=== PATIENT | male | born 1990 | race Two or more races ===

== ENCOUNTER 2017-03-03 12:29 | Outpatient (CLI) | payer OTHER ==
[~2017-03-03 12:29] MED LIST: AMOX1TAB12 PO; MUPIROCIN15 GM TOP; PERIDEX473 ML MM
== END 2017-03-03 12:34 | disposition home or self-care (01) ==
LOC: RAD 12:29
DX: R56.9 Unspecified convulsions (principal)

== ENCOUNTER 2017-03-04 10:22 | Outpatient (CLI) | payer OTHER | END 2017-03-04 10:26 | disposition home or self-care (01) | LOC: LAB 10:22 | DX: R56.9 Unspecified convulsions (principal) ==

== ENCOUNTER → 2017-03-08 12:23 | Outpatient (CLI) | payer OTHER ==
[~2017-03-08] VITALS: Ht 152.4 cm; Wt 104.3 kg
== END | disposition home or self-care (01) ==
LOC: PPHC 12:23
DX: G40.89 Other seizures (principal)

== ENCOUNTER 2017-08-29 09:08 | Emergency (ER) | payer OTHER ==
[~2017-08-29] VITALS: Ht 180.3 cm; Wt 113.4 kg
[2017-08-29] MEDS ORDERED: KEPPRA500 MG PO (09:18)
== END 2017-08-29 12:35 | disposition home or self-care (01) ==
LOC: ER 09:08
DX: B34.9 Viral infection, unspecified (principal)

== ENCOUNTER 2017-09-06 08:13 | Emergency (ER) | payer OTHER ==
[~2017-09-06] VITALS: Ht 165.1 cm; Wt 93.0 kg
[~2017-09-06 08:13] MED LIST changes: +KEPPRA500 MG PO
[2017-09-06] MEDS ORDERED: AMOX1TAB5 PO (10:50)
[2017-09-06] MEDS ORDERED: TUSSI PRES-B L120 M1 PO (10:50)
== END 2017-09-06 11:04 | disposition home or self-care (01) ==
LOC: ER 08:13
DX: J06.9 Acute upper respiratory infection, unspecified (principal)

== ENCOUNTER 2018-12-16 07:45 | Emergency (ER) | payer OTHER ==
[~2018-12-16] VITALS: Ht 177.8 cm; Wt 104.3 kg
[~2018-12-16 07:45] MED LIST changes: +AMOX1TAB5 PO; +TUSSI PRES-B L120 M1 PO
== END 2018-12-16 15:33 | disposition home or self-care (01) ==
LOC: ER 07:45
DX: T62.8X1A Toxic effect of other specified noxious substances eaten as food, accidental (unintentional), initial encounter (principal)

== ENCOUNTER 2019-05-13 01:36 | Emergency (ER) | payer OTHER ==
[~2019-05-13] VITALS: Ht 177.8 cm; Wt 122.5 kg
== END 2019-05-13 06:28 | disposition home or self-care (01) ==
LOC: ER 01:36
DX: K52.89 Other specified noninfective gastroenteritis and colitis (principal)

== ENCOUNTER → 2019-11-29 | Outpatient (CLI) | payer OTHER | END | disposition home or self-care (01) | LOC: PPH VACUNA 09:00 | DX: Z23 Encounter for immunization (principal) ==

== ENCOUNTER 2020-04-19 00:59 | Emergency (ER) | payer OTHER ==
[~2020-04-19] VITALS: Ht 175.3 cm; Wt 113.4 kg
[2020-04-19] MEDS ORDERED: ORPHENADRINE C100 MG PO (03:02)
[2020-04-19] MEDS ORDERED: KETO10TA2 PO (03:02)
== END 2020-04-19 03:24 | disposition home or self-care (01) ==
LOC: ER 00:59
DX: S40.011A Contusion of right shoulder, initial encounter (principal); W18.39XA Other fall on same level, initial encounter; Y93.89 Activity, other specified; Y92.098 Other place in other non-institutional residence as the place of occurrence of the external cause; Y99.8 Other external cause status

== ENCOUNTER 2020-04-29 07:50 | Outpatient (CLI) | payer OTHER ==
[~2020-04-29 07:50] MED LIST changes: +KETO10TA2 PO; +ORPHENADRINE C100 MG PO
== END 2020-04-29 08:04 | disposition home or self-care (01) ==
LOC: MRI 07:50
PROVIDERS: ATTEND Orthopaedic Surgery
DX: S42.291A Other displaced fracture of upper end of right humerus, initial encounter for closed fracture (principal)
CPT/HCPCS: 73221

== ENCOUNTER 2020-06-26 20:46 | Emergency (ER) | payer OTHER ==
[~2020-06-26] VITALS: Ht 177.8 cm; Wt 117.9 kg
== END 2020-06-26 22:35 | disposition home or self-care (01) ==
LOC: ER 20:46
DX: S43.014A Anterior dislocation of right humerus, initial encounter (principal); W18.39XA Other fall on same level, initial encounter; Y93.89 Activity, other specified; Y92.098 Other place in other non-institutional residence as the place of occurrence of the external cause; Y99.8 Other external cause status

== ENCOUNTER 2020-12-03 08:00 | Outpatient (CLI) | payer OTHER | END 2020-12-03 08:30 | disposition home or self-care (01) | LOC: PPH VACUNA 08:00 | PROVIDERS: ATTEND Emergency Medicine Pediatric Emergency Medicine | DX: Z23 Encounter for immunization (principal) ==

== ENCOUNTER 2021-03-05 18:27 | Emergency (ER) | payer OTHER ==
[~2021-03-05] VITALS: Ht 180.3 cm; Wt 136.1 kg
== END 2021-03-05 22:01 | disposition home or self-care (01) ==
LOC: ER 18:27
DX: U07.1 COVID-19 (principal); B34.8 Other viral infections of unspecified site

== ENCOUNTER 2021-11-05 14:31 | Outpatient (CLI) | payer OTHER | END 2021-11-05 14:34 | disposition home or self-care (01) | LOC: LAB 14:31 | DX: J10.1 Influenza due to other identified influenza virus with other respiratory manifestations (principal); A49.3 Mycoplasma infection, unspecified site; U07.1 COVID-19 ==

== ENCOUNTER 2022-02-05 11:52 | Emergency (ER) | payer OTHER ==
[~2022-02-05] VITALS: Ht 180.3 cm; Wt 122.5 kg
[2022-02-05] MEDS ORDERED: DICLOFENAC POTA50 MG PO (15:33)
[2022-02-05] MEDS ORDERED: ULTRAM50 MG PO (15:33)
== END 2022-02-05 15:42 ==
LOC: ER 11:52
DX: S60.011A Contusion of right thumb without damage to nail, initial encounter (principal); W23.0XXA Caught, crushed, jammed, or pinched between moving objects, initial encounter; Y93.9 Activity, unspecified; Y92.9 Unspecified place or not applicable

== ENCOUNTER 2022-03-02 11:48 | Outpatient (CLI) | payer OTHER ==
[~2022-03-02 11:48] MED LIST changes: +DICLOFENAC POTA50 MG PO; +ULTRAM50 MG PO
== END 2022-03-02 11:51 | disposition home or self-care (01) ==
LOC: LAB 11:48
PROVIDERS: ATTEND Preventive Medicine Occupational Medicine
DX: U07.1 COVID-19 (principal)

== ENCOUNTER 2022-10-30 13:03 | Emergency (ER) | payer OTHER ==
[~2022-10-30] VITALS: Ht 177.8 cm; Wt 127.0 kg
== END 2022-10-30 17:04 | disposition home or self-care (01) ==
LOC: ER 13:03
DX: N50.811 Right testicular pain (principal)

== ENCOUNTER 2022-11-26 14:20 | Outpatient (CLI) | payer OTHER | END 2022-11-26 14:30 | disposition home or self-care (01) | LOC: PPH VACUNA 14:20 | PROVIDERS: ATTEND Emergency Medicine Pediatric Emergency Medicine | DX: Z23 Encounter for immunization (principal) | CPT/HCPCS: 90686; G0008 ==

== ENCOUNTER 2022-12-09 10:14 | Outpatient (CLI) | payer OTHER ==
[2022-12-09 08:41] LABS: HEMATOCRIT 42.4 % (39.0-48.0); HEMOGLOBIN 14.6 g/dL (13-16.00); MEAN CELL VOLUME 90.3 fL (80.0-100.00); MEAN CORPUSCULAR HEMOGLOBIN 31.1 pg (27.00-32.0); MEAN CORPUSCULAR HGB CONC 34.4 g/dl (32.0-36.0); PLATELET COUNT 182 K/uL (150-450); RED CELL DISTRIBUTION WIDTH 12.8 % (11.5-14.5)
[2022-12-09 08:45] LABS: PH,URINE 6.5 (5.0-8.0); URINE APPEARANCE Clear; URINE BILIRRUBIN Negative (NEGATIVE); URINE BLOOD Negative; URINE COLOR Yellow; URINE GLUCOSE Negative (NEGATIVE); URINE LEUKOCYTE Negative; URINE NITRATE Negative; URINE PROTEIN Negative (NEGATIVE)
[2022-12-09 08:48] LABS: ERYTHROCYTE SEDIMENTATION RATE 12 mm/hr
[2022-12-09 08:49] LABS: URINE BACTERIA 12.5 uL (0.0-1933); URINE RBC 2.1 uL (0.0-20.8)
[2022-12-09 09:13] LABS: URINE EPITHELIAL CELLS 1.2 uL (0.0-38.8)
[2022-12-09 09:15] LABS: INR 0.99; PARTIAL THROMBOPLASTIN TIME 29.3 SECONDS (22.0-34.0); PROTHROMBIN TIME 10.4 SECONDS (9.0-11.5)
[2022-12-09 09:30] LABS: ALBUMIN 3.7 gm/dL (3.4-5.0); BILIRUBIN TOTAL 0.28 mg/dL (0.3-1.2); CALCIUM 8.4 mg/dL (8.5-10.1); CHOL HDL RATIO 4.6 (0-5.0); CREATININE SERUM 0.83 mg/dL (0.70-1.30); GFR 107.37; GLOBULINA 3.3 G/DL (2.4-3.5); POTASSIUM 4.53 mEq/L (3.5-5.1); T4 FREE 0.9 NG/ML (0.76-1.46); TSH 2.55 uIU/mL (0.358-3.74)
[2022-12-09 11:35] LABS: VITAMIN D3 25 HYDROXY 19.95 ng/ml (30-120)
== END 2022-12-09 10:16 | disposition home or self-care (01) ==
LOC: LAB 10:14
DX: E11.69 Type 2 diabetes mellitus with other specified complication (principal); G40.909 Epilepsy, unspecified, not intractable, without status epilepticus; E66.01 Morbid (severe) obesity due to excess calories; I10 Essential (primary) hypertension; E03.5 Myxedema coma; D64.9 Anemia, unspecified; E78.2 Mixed hyperlipidemia; N39.0 Urinary tract infection, site not specified

== ENCOUNTER 2022-12-20 07:37 | Emergency (ER) | payer OTHER ==
[~2022-12-20] VITALS: Ht 180.3 cm; Wt 127.0 kg
[2022-12-20 08:46] LABS: HEMATOCRIT 46.2 % (39.0-48.0); HEMOGLOBIN 16.2 g/dL (13-16.00); MEAN CELL VOLUME 89.1 fL (80.0-100.00); MEAN CORPUSCULAR HEMOGLOBIN 31.3 pg (27.00-32.0); MEAN CORPUSCULAR HGB CONC 35.1 g/dl (32.0-36.0); PLATELET COUNT 189 K/uL (150-450); RED BLOOD COUNT 5.18 M/uL (4.00-6.00); RED CELL DISTRIBUTION WIDTH 12.8 % (11.5-14.5)
[2022-12-20 09:09] LABS: ALBUMIN 4.4 gm/dL (3.4-5.0); BILIRUBIN TOTAL 0.89 mg/dL (0.3-1.2); CALCIUM 9.3 mg/dL (8.5-10.1); CREATININE SERUM 1.02 mg/dL (0.70-1.30); GFR 84.64; GLOBULINA 4.1 G/DL (2.4-3.5); POTASSIUM 4.13 mEq/L (3.5-5.1); TOTAL PROTEIN 8.5 gm/dL (6.4-8.2)
[2022-12-20] MEDS ORDERED: PEPCID AC20 MG PO (10:50)
[2022-12-20] MEDS ORDERED: DICY20TA PO (10:50)
[2022-12-20] MEDS ORDERED: ZOFRAN8 MG PO (10:50)
== END 2022-12-20 11:49 | disposition home or self-care (01) ==
LOC: ER 07:38
PROVIDERS: General Practice
DX: K52.9 Noninfective gastroenteritis and colitis, unspecified (principal); Z20.822 Contact with and (suspected) exposure to COVID-19

== ENCOUNTER 2023-04-18 15:24 | Emergency (ER) | payer OTHER ==
[~2023-04-18] VITALS: Ht 172.7 cm; Wt 127.0 kg
[~2023-04-18 15:24] MED LIST changes: +DICY20TA PO; +PEPCID AC20 MG PO; +ZOFRAN8 MG PO
[2023-04-18] MEDS ORDERED: ENALAPRILAT DIHYDRATE 1.25 MG/ML VIAL IV ONE (16:15)
[2023-04-18 16:22] LABS: HEMATOCRIT 41.6 % (39.0-48.0); HEMOGLOBIN 14.6 g/dL (13-16.00); MEAN CELL VOLUME 90.7 fL (80.0-100.00); MEAN CORPUSCULAR HEMOGLOBIN 31.8 pg (27.00-32.0); MEAN CORPUSCULAR HGB CONC 35.1 g/dl (32.0-36.0); PLATELET COUNT 178 K/uL (150-450); RED BLOOD COUNT 4.59 M/uL (4.00-6.00); RED CELL DISTRIBUTION WIDTH 12.9 % (11.5-14.5)
[2023-04-18 16:52] LABS: CALCIUM 8.9 mg/dL (8.5-10.1); CREATININE SERUM 0.86 mg/dL (0.70-1.30); GFR 103.05; POTASSIUM 3.7 mEq/L (3.5-5.1)
[2023-04-18 16:55] LABS: INR 0.98; PARTIAL THROMBOPLASTIN TIME 29.3 SECONDS (22.0-34.0); PROTHROMBIN TIME 10.3 SECONDS (9.0-11.5)
[2023-04-18] MEDS ORDERED: METOCLOPRAMIDE HCL 5 MG/ML VIAL IM ONE (17:15)
[2023-04-18] MEDS ORDERED: DEXAMETHASONE SODIUM PHOSPHATE 4 MG/ML VIAL IM ONE (17:15)
== END 2023-04-18 17:40 | disposition home or self-care (01) ==
LOC: ER 15:24
PROVIDERS: General Practice
DX: R51.9 Headache, unspecified (principal); I10 Essential (primary) hypertension; Z20.822 Contact with and (suspected) exposure to COVID-19

== ENCOUNTER → 2023-06-20 | Emergency (ER) | payer OTHER ==
[~2023-06-20] VITALS: Ht 175.3 cm; Wt 120.2 kg
== END | disposition home or self-care (01) ==
LOC: ER 14:17
DX: H10.89 Other conjunctivitis (principal)

== ENCOUNTER 2023-12-08 11:05 | Outpatient (CLI) | payer OTHER | END 2023-12-08 12:00 | disposition home or self-care (01) | LOC: PPH VACUNA 11:05 | PROVIDERS: ATTEND Emergency Medicine Pediatric Emergency Medicine | DX: Z23 Encounter for immunization (principal) ==

== ENCOUNTER → 2024-06-13 | Emergency (ER) | payer OTHER ==
[~2024-06-13] VITALS: Ht 152.4 cm; Wt 95.3 kg
[~2024-06-13] MED LIST changes: +0.9 % SODIUM CHLORIDE 1,000 ML IV ONE; +FAMOTIDINE/PF 20 MG/2 ML VIAL IV PUSH STA; +FAMOTIDINE/PF 20 MG/2 ML VIAL ONE; +LIDOCAINE HCL 1% 10ML VIAL ONE; +PROMETHAZINE HCL 50 MG/ML AMPUL IM ONE; +PROMETHAZINE HCL 50 MG/ML AMPUL IM STA
[2024-06-13 08:52] LABS: HEMATOCRIT 45.1 % (39.0-48.0); HEMOGLOBIN 15.9 g/dL (13-16.00); MEAN CELL VOLUME 93.3 fL (80.0-100.00); MEAN CORPUSCULAR HEMOGLOBIN 32.8 pg (27.00-32.0); MEAN CORPUSCULAR HGB CONC 35.2 g/dl (32.0-36.0); PLATELET COUNT 209 K/uL (150-450); RED BLOOD COUNT 4.83 M/uL (4.00-6.00); RED CELL DISTRIBUTION WIDTH 13.3 % (11.5-14.5)
[2024-06-13 09:19] LABS: ALBUMIN 4.2 gm/dL (3.4-5.0); BILIRUBIN TOTAL 0.72 mg/dL (0.3-1.2); CALCIUM 9.3 mg/dL (8.5-10.1); CREATININE SERUM 0.73 mg/dL (0.70-1.30); GFR 122.99; GLOBULINA 3.7 G/DL (2.4-3.5); POTASSIUM 3.85 mEq/L (3.5-5.1); TOTAL PROTEIN 7.9 gm/dL (6.4-8.2)
[2024-06-13 11:18] LABS: PH,URINE 5.5 (5.0-8.0); URINE APPEARANCE Clear; URINE BILIRRUBIN Negative (NEGATIVE); URINE BLOOD Negative; URINE COLOR Yellow; URINE GLUCOSE Negative (NEGATIVE); URINE LEUKOCYTE Negative; URINE NITRATE Negative; URINE PROTEIN Negative (NEGATIVE)
[2024-06-13 11:22] LABS: URINE EPITHELIAL CELLS 1.5 uL (0.0-38.8); URINE WBC 2.3 uL (0.0-23.2)
[2024-06-13 11:24] LABS: URINE KETONE 40 (NEGATIVE); URINE RBC 1.9 uL (0.0-20.8)
== END | disposition home or self-care (01) ==
LOC: ER 07:08
PROVIDERS: General Practice
DX: R11.10 Vomiting, unspecified (principal)

== ENCOUNTER 2024-12-28 12:37 | Outpatient (CLI) | payer OTHER ==
[~2024-12-28 12:37] MED LIST changes: -0.9 % SODIUM CHLORIDE 1,000 ML IV ONE; -FAMOTIDINE/PF 20 MG/2 ML VIAL IV PUSH STA; -FAMOTIDINE/PF 20 MG/2 ML VIAL ONE; -LIDOCAINE HCL 1% 10ML VIAL ONE; -PROMETHAZINE HCL 50 MG/ML AMPUL IM ONE; -PROMETHAZINE HCL 50 MG/ML AMPUL IM STA
== END 2024-12-28 12:47 | disposition home or self-care (01) ==
LOC: PPH VACUNA 12:37
PROVIDERS: ATTEND Emergency Medicine Pediatric Emergency Medicine
DX: Z23 Encounter for immunization (principal)

== ENCOUNTER 2025-01-01 21:14 | Emergency (ER) | payer OTHER ==
[~2025-01-01] VITALS: Ht 172.7 cm; Wt 61.2 kg
[2025-01-01] MEDS ORDERED: ORPHENADRINE CITRATE 30 MG/ML AMPUL IM STA (21:53)
[2025-01-01] MEDS ORDERED: KETOROLAC TROMETHAMINE 30 MG VIAL IM STA (21:53)
[2025-01-01] MEDS ORDERED: DEXAMETHASONE 4 MG TABLET PO STA (21:54)
[2025-01-01] MEDS ORDERED: KETOROLAC TROMETHAMINE 30 MG VIAL ONE (22:43)
[2025-01-01] MEDS ORDERED: DEXAMETHASONE SODIUM PHOSPHATE 4 MG/ML VIAL ONE (22:43)
[2025-01-01] MEDS ORDERED: ORPHENADRINE CITRATE 30 MG/ML AMPUL ONE (22:43)
[2025-01-01 23:25] LABS: BASO % 0.6 % (0.1-1.2); EOS # 0.22 (0.04-0.54); EOS % 2.8 % (0.7-7.0); LYMPH # 3.64 (1.18-3.74); LYMPH % 45.8 % (19.3-53.1); MEAN PLATELET VOLUME 10.50 fl (9.4-12.4); MONO # 0.67 (0.24-0.82); MONO % 8.4 % (4.7-12.5); NEUT # 3.34 (1.56-6.13); NEUT % 42.1 % (34.0-71.1); RED CELL DISTRIBUTION WIDTH 11.7 % (11.6-14.4)
[2025-01-01 23:33] LABS: INR 1.01
[2025-01-01 23:45] LABS: ALT/SGPT 28.0 U/L (12-78); AST/SGOT 16.0 U/L (15-37); BILIRUBIN TOTAL 0.41 mg/dL (0.3-1.2); BUN CREA RATIO 16.0 (7.0-25.0); CREATININE SERUM 0.91 mg/dL (0.70-1.30); GFR 95.37; GLOBULINA 3.3 G/DL (2.4-3.5); GLUCOSE FASTING 90.0 mg/dL (65-100); OSMOLALITY SERUM 283.0 MOSM/KG (275-295)
[2025-01-02] MEDS ORDERED: KETO10TA2 PO (00:23)
== END 2025-01-02 00:33 | disposition home or self-care (01) ==
LOC: ER 21:14
PROVIDERS: Physician Assistant Medical
DX: S09.8XXA Other specified injuries of head, initial encounter (principal); X58.XXXA Exposure to other specified factors, initial encounter; Y93.89 Activity, other specified; Y92.89 Other specified places as the place of occurrence of the external cause; Y99.8 Other external cause status

== ENCOUNTER 2025-03-05 08:44 | Outpatient (CLI) | payer OTHER ==
[2025-03-05 09:26] LABS: COVID-19 AG NEGATIVE (NEGATIVE)
== END 2025-03-05 08:47 | disposition home or self-care (01) ==
LOC: LAB 08:44
DX: J11.1 Influenza due to unidentified influenza virus with other respiratory manifestations (principal); Z20.828 Contact with and (suspected) exposure to other viral communicable diseases